=== PATIENT | female | born 1990 | race Caucasian/White ===

== ENCOUNTER 2018-01-30 11:59 | Day surgery (SDC) | payer OTHER ==
[2018-01-27 11:06] VITALS: BMI 41.0
--- NOTE | 2018-01-30 07:45 | P.GSHP ---
History of Present Illness H&P Date: 01/30/18 CHIEF COMPLAINT: GI bleed HISTORY OF PRESENT ILLNESS: The patient is a 27-year-old female who presents with GI bleed. Upper and lower endoscopy were offered for further evaluation and management. PAST MEDICAL HISTORY: Please see list. PAST SURGICAL HISTORY: Please see list. MEDICATIONS: Please see list. ALLERGIES: Please see list. SOCIAL HISTORY: No illicit drug use FAMILY HISTORY: No reports of Crohn disease or ulcerative colitis. REVIEW OF ORGAN SYSTEMS: CONSTITUTIONAL: No reports of fevers or chills. GI: Denies any blood in stools or constipation. PHYSICAL EXAM: VITAL SIGNS: Stable GENERAL: Well-developed pleasant in no acute distress. HEENT: No scleral icterus. Extraocular movements grossly intact. Moist buccal mucosa. NECK: Supple without lymphadenopathy. CHEST: Unlabored respirations. Equal bilateral excursions. CARDIOVASCULAR: Regular rate and rhythm. Distal 2+ pulses. ABDOMEN: Soft, nondistended. MUSCULOSKELETAL: No clubbing, cyanosis, or edema. ASSESSMENT: 1. GI bleed PLAN: 1. Recommend proceeding with an upper and lower endoscopy Past Medical History Past Medical History: Asthma, Eye Disorder, GERD/Reflux, Hearing Disorder / Deafness, Rheumatoid Arthritis (RA) Additional Past Medical History / Comment(s): Hx fx lt ankle. Partially deaf in bilaterally, astigmatism. Current daily diarrhea X3-4 weeks, up to 12 episodes in one day. History of Any Multi-Drug Resistant Organisms: None Reported Past Surgical History: Section Additional Past Surgical History / Comment(s): Left ankle surgery, Section X2, mole removed. Past Anesthesia/Blood Transfusion Reactions: No Reported Reaction Past Psychological History: Anxiety, Depression Additional Psychological History / Comment(s): Depression resolved. Smoking Status: Current every day smoker Past Alcohol Use History: Occasional Additional Past Alcohol Use History / Comment(s): Has been smoking since 16 yrs old, 1 PPD. Past Drug Use History: None Reported - Past Family History Mother Family Medical History: No Reported History Medications and Allergies Home Medications Medication Instructions Recorded Confirmed Type Albuterol Inhaler [Ventolin Hfa 1 - 2 puff INHALATION RT-Q6H PRN 01/27/18 History Inhaler] Control Pill 1 tab PO HS 01/27/18 01/27/18 History Buspirone 1 tab PO DAILY PRN 01/27/18 01/27/18 History Flexeril 1 tab PO DAILY PRN 01/27/18 01/27/18 History Allergies Allergy/AdvReac Type Severity Reaction Status Date / Time latex Allergy Rash/Hives Verified 01/27/18 11:15 tetanus immune globulin Allergy Anaphylaxis Verified 01/27/18 10:54 venom-honey bee Allergy Anaphylaxis Verified 01/27/18 10:54 [bee venom (honey bee)]
[~2018-01-30 11:59] MED LIST: LACTATED RINGERS 1,000 ML IV SCH; LIDOCAINE 1% 20 ML VIAL (10MG/ML) FOR IV START INTRADERMA PRN
[2018-01-30 12:30] VITALS: RESP 16; TEMP 97
[2018-01-30] MEDS ORDERED: GLYCOPYRROLATE 0.2 MG/ML 2 ML VIAL ONE (13:45)
[2018-01-30] MEDS ORDERED: KETAMINE 10 MG/ML 20 ML VIAL ONE (13:45)
[2018-01-30] MEDS ORDERED: LIDOCAINE 1% INJ 10MG/ML (20 ML MDV) ONE (13:45)
[2018-01-30] MEDS ORDERED: PROPOFOL 10 MG/ML 20 ML VIAL IV ONE (13:45)
--- NOTE | 2018-01-30 14:02 | P.PCN ---
Date of Procedure: 01/30/18 Description of Procedure: PREOPERATIVE DIAGNOSIS: Gastrointestinal bleed History of gastric ulcers POSTOPERATIVE DIAGNOSIS: Gastrointestinal bleed History of gastric ulcers Morbid obesity due to excess calories, BMI 41.1 Superficial gastric ulcer antrum without bleeding Gastroesophageal reflux disease. Diaphragmatic hiatal hernia without obstruction. OPERATION: Esophagogastroduodenoscopy with biopsies along antrum. SURGEON: Charlee Valerio MD ANESTHESIA: MAC. INDICATIONS: The patient is a 27-year-old female who presents with a history of reflux disease. Benefits and risks of the procedure were described. Informed consent was obtained. DESCRIPTION: The patient was brought into the endoscopy suite and laid in the left lateral decubitus position. An Olympus gastroscope was passed along the posterior oropharynx down to the distal esophagus where the squamocolumnar junction was encountered at 35 cm from the incisors. The stomach was entered and no bile reflux was found. Additional findings are listed below. Biopsies with cold forceps were obtained of the antrum. The first through third portion of the duodenum was examined and unremarkable. Retroflexion of the scope confirmed Hill grade 4 lower esophageal valve. The squamocolumnar junction demonstrated LA grade B erosive esophagitis. The stomach was desufflated. The patient tolerated the procedure well. FINDINGS: Squamocolumnar junction 35 cm from the incisors. Diaphragmatic hiatus at 37 cm. Hiatal hernia 2 cm, sliding type Hill grade 4 lower esophageal valve. LA grade B erosive esophagitis. No active duodenitis. Gastric ulcers without active bleeding, superficial RECOMMENDATIONS: Further recommendations pending results of pathology report. Upper endoscopy as needed.
--- NOTE | 2018-01-30 14:13 | P.PCN ---
Date of Procedure: 01/30/18 Description of Procedure: PREOPERATIVE DIAGNOSIS: Gastrointestinal bleeding Family history colon cancer POSTOPERATIVE DIAGNOSIS: Gastrointestinal bleeding Family history colon cancer Colon polyp, rectum OPERATION: Colonoscopy to the ileocecal valve and appendiceal orifice. Colonoscopy with hot snare polypectomies SURGEON: Charlee Valerio MD. ANESTHESIA: MAC. INDICATIONS: The patient is a 27-year-old female who presents with gastrointestinal bleeding. Benefits and risks were described and informed consent was obtained. DESCRIPTION OF PROCEDURE: The patient had undergone Gatorade, MiraLAX and Dulcolax prep. She had been brought into the operating room and laid in the left lateral decubitus position. After adequate intravenous sedation, the rectum was examined with 2% lidocaine jelly. No external hemorrhoids were encountered. The rectal tone was within normal limits. No lesions were palpated in the rectal vault. An Olympus colonoscope was advanced until the ileocecal valve and appendiceal orifice were clearly viewed. The prep was fair with visualization of the mucosal folds. The scope was removed with visualization of each mucosal fold. No scattered diverticulosis was encountered. Colonic polyps were snare polypectomy. No evidence of focal colitis was found. No grade 1 internal hemorrhoids without active bleeding or inflammation were found. The colon was desufflated. The patient had tolerated the procedure well. Withdrawal time was over 6 minutes. FINDINGS: No internal hemorrhoids No external hemorrhoids, grade 2. No arteriovenous malformations. Removal of 1 polyp: - Snare polypectomy 10 cm from the anal verge, 5 mm tubulovillous adenoma polyp. No sigmoid diverticulosis No focal colitis. RECOMMENDATIONS: With her family history and polyps, repeat colonoscopy 5 years, 2022
[2018-01-30 14:37] VITALS: BP 105/76; PULSE 79
--- NOTE | 2018-02-03 15:35 | CDI ---
Outpatient Documentation Clarification Form Date: 02/03/18 CDS/Hotel Controller Name: Mesha Sauceda Phone: If any questions, call Crystal Khan [employer] Control Equipment Repairer at [phone] Patient Name: Hattie Paula Admit Date: 01/30/18 Discharge Date: 01/30/18 ATTENTION: The [facility] Coding Staff appreciate your assistance in clarifying documentation. Please respond to the clarification below the line at the bottom and electronically sign. The [facility] Coding staff will review the response and follow-up if needed. Please note: Queries are made part of the Legal Health Record. If you have any questions, please contact the X [employer] Control Equipment Repairer. Dear Dr. Valerio, What is the source of the GI bleed? Is it due to one of the conditions found, such as gastritis or ulcer, or unrelated? Multiple coding resources, that we are required to follow, state that the physician should identify a source and the membership solicitor may not assume. ICD-9-CM [facility], Second 2006, Page 13: Question: In the 2004 issue of [facility], it was advised that "the combination codes describing hemorrhage should not be assigned unless the physician identifies a causal relationship." This information superseded previous advice provided in 1991. If, however, a patient presents with GI bleeding where only one possible source is found, can the membership solicitor assume a causal relationship between the GI bleeding and the single finding (ulcer, gastritis, diverticulitis, etc.) or must the physician explicitly state that the GI bleeding is due to the single finding? Answer: The membership solicitor should not assume a causal relationship between gastrointestinal bleeding and a single finding such as a gastric ulcer, gastritis, diverticulitis , etc. The physician must identify the source of the bleeding and link the clinical findings from the colonoscopy or upper endoscopy, since these findings may be unrelated to the bleeding. ICD-9-CM, 2004, Page: 17-18: Question: A patient presents with GI bleeding and undergoes both an EGD with biopsy and colonoscopy. Results reveal multiple findings including gastritis, duodenitis, esophagitis, diverticulosis (of colon), and colon polyp. The physician does not link the GI bleeding with these conditions nor does the physician state that the GI bleeding is not due to these conditions. What is the correct code assignment for these conditions? Answer: Query the physician to determine whether the GI bleeding was caused by any of the endoscopic findings (e.g., gastritis, duodentitis, esophagitis, diverticulosis, and/or polyp). Assign code 578.9, Hemorrhage of gastrointestinal tract, unspecified, as the principal diagnosis, if the physician does not establish a causal relationship between the gastrointestinal bleeding and the multiple findings. Codes 535.50, Unspecified gastritis and gastroduodenitis, without hemorrhage, 535.60, Duodenitis, without hemorrhage, 530.10, Esophagitis, unspecified, 562.10, Diverticulosis of colon (without mention of hemorrhage), and 211.3, Benign neoplasm of other parts of digestive system, Colon, should be assigned as additional diagnoses. The combination codes describing hemorrhage should not be assigned unless the physician identifies a causal relationship. If the documentation provides more specific information and the bleeding is linked to a specific condition, assign the appropriate combination code with bleeding. Assign code 45.16, Esophagogastroduodenoscopy [EGD] with closed biopsy, and code 45.23, Colonoscopy , for the procedures performed. This current information supersedes advice previously published in [facility], Second Quarter 1991, pages 8-9. Thank you for your kind consideration. NO ACTIVE BLEEDING WAS FOUND ON EITHER UPPER SCOPE OR LOWER SCOPE. THEREFORE FINDINGS ARE NOT ABLE TO ESTABLISH A SOURCE. NO CAUSAL RELATIONSHIP CAN BE ASSUMED....578.9 02/11/18 @ 11:06 [facility]
== END 2018-01-30 14:46 | disposition home or self-care (01) ==
LOC: ORWHC2ENDO 11:59
PROVIDERS: ATTEND Surgery Plastic and Reconstructive Surgery
DX: K29.51 Unspecified chronic gastritis with bleeding (principal); K62.1 Rectal polyp; K21.0 Gastro-esophageal reflux disease with esophagitis; K25.9 Gastric ulcer, unspecified as acute or chronic, without hemorrhage or perforation; E66.01 Morbid (severe) obesity due to excess calories; Z68.41 Body mass index [BMI] 40.0-44.9, adult; K44.9 Diaphragmatic hernia without obstruction or gangrene; Z80.0 Family history of malignant neoplasm of digestive organs; Z87.11 Personal history of peptic ulcer disease; J45.909 Unspecified asthma, uncomplicated; M06.9 Rheumatoid arthritis, unspecified; H91.93 Unspecified hearing loss, bilateral; H52.209 Unspecified astigmatism, unspecified eye; F41.9 Anxiety disorder, unspecified; F32.9 Major depressive disorder, single episode, unspecified; F17.210 Nicotine dependence, cigarettes, uncomplicated; Z79.3 Long term (current) use of hormonal contraceptives; Z88.7 Allergy status to serum and vaccine; Z91.030 Bee allergy status; Z91.040 Latex allergy status
CPT/HCPCS: 81025; 88305; 45385; 43239; J2001; J2704

== ENCOUNTER 2018-03-30 12:13 | Day surgery (SDC) | payer OTHER ==
[2018-03-24 11:26] VITALS: BMI 41.0
--- NOTE | 2018-03-29 17:23 | P.GSHP ---
History of Present Illness H&P Date: 03/30/18 CHIEF COMPLAINT: Cholecystitis HISTORY OF PRESENT ILLNESS: The patient is a 27-year-old female who presents with history of epigastric including right upper quadrant abdominal pain. She underwent diagnostic studies for her gallbladder. Separately her clinical picture was consistent with cholecystitis. Now she presents for surgical intervention. PAST MEDICAL HISTORY: Please see list PAST SURGICAL HISTORY: Please see list MEDICATIONS: Please see list ALLERGIES: Denies. SOCIAL HISTORY: No illicit drug use or recent tobacco use FAMILY HISTORY: Pertinent for gallbladder disease REVIEW OF ORGAN SYSTEMS: CONSTITUTIONAL: No reports of fevers or chills. HEENT: Denies any troubles with the vision or hearing. ENDOCRINE: No reports of hypothyroidism. No diabetes. RESPIRATORY: No recent pneumonias. CARDIOVASCULAR: Denies chest pain or palpitations GI: No blood in stools or constipation. MUSCULOSKELETAL: Has occasional joint pain including back pain. NEURO: No seizure disorders or headaches. No recent stroke. PSYCH: No depression or suicidal ideation. GENITOURINARY: No active blood in urine. No urinary hesitancy. HEMATOLOGIC: No personal or family history of DVTs or pulmonary emboli. SKIN: No skin cancer. PHYSICAL EXAM: VITAL SIGNS: Afebrile vital signs stable GENERAL: Well-developed pleasant in no acute distress. HEENT: No scleral icterus. Extraocular movements grossly intact. Moist buccal mucosa. NECK: Supple without lymphadenopathy. CHEST: Unlabored respirations. Equal bilateral excursions. CARDIOVASCULAR: Regular rate regular rhythm rhythm. Distal 2+ pulses. ABDOMEN: Soft, nondistended. Tender along the epigastrium and right upper quadrant. MUSCULOSKELETAL: No clubbing, cyanosis, or edema. NEURO: Cranial nerves II to XII within normal limits. No focal or lateralizing signs. PSYCH: Alert and oriented to person, place and time. SKIN: Well-perfused good skin turgor. ASSESSMENT: 1. Epigastric and right upper quadrant abdominal pain 2. Chronic cholecystitis 3. Symptomatic gallstones. PLAN: 1. Will need a robotic cholecystectomy possible open. Benefits and risks were described. 2. Heparin for DVT prophylaxis 5000 units. 3. Antibiotic prophylaxis. Past Medical History Past Medical History: Asthma, Eye Disorder, GERD/Reflux, Hearing Disorder / Deafness, Rheumatoid Arthritis (RA) Additional Past Medical History / Comment(s): Partially deaf in bilaterally, astigmatism. Current daily diarrhea History of Any Multi-Drug Resistant Organisms: None Reported Past Surgical History: Section Additional Past Surgical History / Comment(s): Left ankle surgery, Section X2, mole removed; tumor from wrist Past Anesthesia/Blood Transfusion Reactions: No Reported Reaction Smoking Status: Current every day smoker - Past Family History Mother Family Medical History: No Reported History Medications and Allergies Home Medications Medication Instructions Recorded Confirmed Type Albuterol Inhaler [Ventolin Hfa 1 - 2 puff INHALATION RT-Q6H PRN 01/27/18 History Inhaler] Allese 1 tab PO DAILY 03/24/18 03/24/18 History Cyclobenzaprine [Flexeril] 10 mg PO TID PRN 03/24/18 03/24/18 History busPIRone HCL 10 mg PO BID PRN 03/24/18 03/24/18 History Allergies Allergy/AdvReac Type Severity Reaction Status Date / Time latex Allergy Rash/Hives Verified 03/24/18 11:17 tetanus immune globulin Allergy Anaphylaxis Verified 03/24/18 11:17 venom-honey bee Allergy Anaphylaxis Verified 03/24/18 11:17 [bee venom (honey bee)]
[~2018-03-30 12:13] MED LIST changes: +DEXAMETHASONE SOD PHOSPHATE 10 MG/ML 1 ML VIAL IV ONE; +HEPARIN SODIUM,PORCINE 5,000 UNIT/ML 1 ML VIAL SQ ONE; +HYDROmorphone 0.5 MG/0.5 ML SYRINGE IVP PRN; +INDOCYANINE GREEN 25 MG VIAL IV STA; -LIDOCAINE 1% 20 ML VIAL (10MG/ML) FOR IV START INTRADERMA PRN; +MIDAZOLAM 2 MG/2 ML VIAL IV PRN; +ONDANSETRON 4 MG/2 ML VIAL IVP ONE
[2018-03-30 12:54] VITALS: RESP 16
[2018-03-30 12:55] LABS: Basophils # (A) 0.1 k/uL (0-0.2); Basophils % (A) 1 %; Eosinophils # (A) 0.3 k/uL (0-0.7); Eosinophils % (A) 4 %; HCT 43.6 % (34.0-46.0); HGB 15.3 gm/dL (11.4-16.0); Lymphocytes # (A) 1.9 k/uL (1.0-4.8); Lymphocytes % (A) 27 %; MCH 29.3 pg (25.0-35.0); MCHC 35.1 g/dL (31.0-37.0); MCV 83.4 fL (80.0-100.0); Mean Platelet Volume 7.3; Monocytes # (A) 0.4 k/uL (0-1.0); Monocytes % (A) 6 %; Neutrophils # (A) 4.3 k/uL (1.3-7.7); Neutrophils % (A) 61 %; Platelet Count 305 k/uL (150-450); RBC 5.22 m/uL (3.80-5.40); RDW 12.6 % (11.5-15.5)
[2018-03-30] MEDS ORDERED: LIDOCAINE 1% 20 ML VIAL (10MG/ML) FOR IV START INTRADERMA ONE (12:56)
[2018-03-30] MEDS ORDERED: SCOPOLAMINE 1.5MG/72HR PATCH TRANSDERM ONE (12:58)
[2018-03-30] MEDS ORDERED: MIDAZOLAM 2 MG/2 ML VIAL ONE (13:22)
[2018-03-30] MEDS ORDERED: MORPHINE SULFATE 10 MG/ML SYRINGE ONE (13:22)
[2018-03-30] MEDS ORDERED: SUCCINYLCHOLINE CHLORIDE 100 MG/5 ML SYR IV ONE (13:22)
[2018-03-30] MEDS ORDERED: HYDROmorphone (PF) 1 MG/ML ONE (13:22)
[2018-03-30] MEDS ORDERED: KETOROLAC 30 MG/ML 1 ML VIAL ONE (13:22)
[2018-03-30] MEDS ORDERED: LIDOCAINE 1% INJ 10MG/ML (20 ML MDV) ONE (13:22)
[2018-03-30] MEDS ORDERED: NEOSTIGMINE 1 MG/ML 10 ML VIAL ONE (13:22)
[2018-03-30] MEDS ORDERED: fentaNYL (PF) 50 MCG/ML 2 ML AMP ONE (13:22)
[2018-03-30] MEDS ORDERED: GLYCOPYRROLATE 0.2 MG/ML 2 ML VIAL ONE (13:22)
[2018-03-30] MEDS ORDERED: ROCURONIUM BROMIDE 10 MG/ML 10 ML VIAL IV ONE (13:22)
[2018-03-30] MEDS ORDERED: PROPOFOL 10 MG/ML 20 ML VIAL IV ONE (13:22)
[2018-03-30 13:23] LABS: ALT 55 U/L (9-52); AST 35 U/L (14-36); Albumin 4.2 g/dL (3.5-5.0); Alkaline Phosphatase 100 U/L (38-126); Anion Gap 10 mmol/L; Blood Urea Nitrogen 6 mg/dL (7-17); Calcium 9.2 mg/dL (8.4-10.2); Carbon Dioxide 25 mmol/L (22-30); Chloride 105 mmol/L (98-107); Glucose 92 mg/dL (74-99); Potassium 4.2 mmol/L (3.5-5.1); Sodium 140 mmol/L (137-145); Total Bilirubin 0.4 mg/dL (0.2-1.3); Total Protein 7.1 g/dL (6.3-8.2)
[2018-03-30] MEDS ORDERED: BUPIVACAIN-EPI 0.25%-1:200,000 30 ML VIAL SQ ONE ×2 (13:35→13:44)
--- NOTE | 2018-03-30 14:26 | P.OP ---
Date of Procedure: 03/30/18 Description of Procedure: SURGEON: ALBERT JHAVERI MD PREOPERATIVE DIAGNOSES: 1. Symptomatic gallstones 2. Chronic cholecystitis 3. Asthma 4. Depression 5. Tobacco abuse POSTOPERATIVE DIAGNOSES: 1. Symptomatic gallstones 2. Chronic cholecystitis 3. Asthma 4. Depression 5. Tobacco abuse 6. Hepatomegaly with fatty liver disease OPERATION: Robotic-assisted da Hans Xi laparoscopic cholecystectomy, multiport with FIREFLY ESTIMATED BLOOD LOSS: 5 mL. SPECIMENS REMOVED: Gallbladder. COMPLICATIONS: None. OPERATIVE FINDINGS: 1. Chronic cholecystitis INDICATIONS: The patient is a 27-year-old female who presents with cholelcystitis. Surgical intervention with a laparoscopic cholecystectomy was described at length including injury to the biliary tree, bleeding, infection, need for further surgery. Informed consent was obtained. Robotic assisted laparoscopic approach was described. Benefits and risks of the procedure including but not limited to bleeding, infection, injury to the biliary tree was described. Informed consent was obtained. DESCRIPTION OF PROCEDURE: Patient was brought to the operating room, placed in supine position. After general induction, the abdomen had been prepped and draped in standard sterile fashion. The robotic da Hans XI system was primed. After a timeout protocol was performed, the patient had been prepped and draped in standard sterile fashion. The patient was injected with indocyanine green. A 5 mm 0 degrees laparoscopic trocar entry was performed along the left upper quadrant. The abdomen insufflated to 15 mmHg pressure which she tolerated well. Diagnostic laparoscopy demonstrated no injury to bowel viscera or mesentery. The liver surface was unremarkable. Next, two 8 mm robotic ports were placed along the right upper abdomen. The camera 8-mm port was maintained along the epigastrium. Another 8 mm port was placed along the left upper abdominal wall after exchanging the 5 mm port. Please note that the ports were placed at least 10 to 15 cm away from the target anatomy of the gallbladder. The robot was docked along the left lateral abdomen. The patient was repositioned in reverse Trendelenburg position. Using a grasper for arm 3, a grasper for arm 4, including hook cautery for arm 1 , the robotic system was docked and primed as described. Instruments were interchanged by the surveyor instrument assistant including hook cautery, Bovie cautery and clip appliers. I had sat at the console. Adhesions were identified along the infundibulum of the gallbladder and addressed using hook cautery. The gallbladder fundus was retracted over the dome of the liver. Initial attention was brought to the infundibulum which was gently retracted in the inferior lateral approach. Using a grasper, the cystic duct including the cystic artery was carefully skeletonized. FIREFLY was used to identify the cystic artery and cystic structures. Large PLASTIC clips were used throughout the entire case. Using a clip print binding and finishing worker 2 clips were placed proximally, and 1 clip was placed distally along the cystic duct and then cauterized with the cautery. Again care was taken to avoid any injury to the biliary tree as the common bile duct was clearly visualized during this portion of dissection. Next, the cystic artery was similarly clipped and cauterized. Electro-Bovie cautery was used to remove the gallbladder from the hepatic fossa. Hemostasis was checked and found to be adequate. The robot was undocked. I re-scrubbed into the case. Using a 10 mm Endo Catch bag via the left upper quadrant incision, the specimen was removed from the abdominal cavity. All pneumoperitoneum instruments were evacuated from the abdominal cavity. The incisions were reapproximated using 4-0 Monocryl in an interrupted subcuticular fashion. Fascial defects were less than 8 mm in size. Please note along the trocar sites, local anesthetic was placed as a field block prior to insertion of all instruments. Liquid glue was applied to the skin. At the end of the procedure needle, sponge, and instrument count had been verified correct by the surgical clinical reviewer. The patient was transferred to postanesthesia care unit in stable condition. Intraoperative films were shared with the patient's family who were very pleased with the level of care. Console time 18 minutes Plan - Discharge Summary New Discharge Prescriptions: No Action Albuterol Inhaler [Ventolin Hfa Inhaler] 1 - 2 puff INHALATION RT-Q6H PRN PRN Reason: Shortness Of Breath Allese 1 tab PO DAILY busPIRone HCL 10 mg PO BID PRN PRN Reason: depression Cyclobenzaprine [Flexeril] 10 mg PO TID PRN PRN Reason: Muscle Spasm Discharge Medication List Albuterol Inhaler [Ventolin Hfa Inhaler] 1 - 2 puff INHALATION RT-Q6H PRN [History] Allese 1 tab PO DAILY 03/24/18 [History] Cyclobenzaprine [Flexeril] 10 mg PO TID PRN 03/24/18 [History] busPIRone HCL 10 mg PO BID PRN 03/24/18 [History] Patient Instructions/Handouts: *Surgery [facility] - Scopalamine Patch Instructions
[2018-03-30] MEDS ORDERED: LACTATED RINGERS 1,000 ML IV ONE (14:30)
[2018-03-30 14:42] VITALS: TEMP 97
[2018-03-30] MEDS ORDERED: diphenhydrAMINE 50 MG/ML 1 ML VIAL IVP ONE (15:09)
[2018-03-30] MEDS ORDERED: HYDROcodone/APAP 5-325MG 1 EACH TAB PO ONE (16:09)
[2018-03-30 16:43] VITALS: BP 111/48; PULSE 64
== END 2018-03-30 16:56 | disposition home or self-care (01) ==
LOC: OR 12:13
PROVIDERS: ATTEND Surgery Plastic and Reconstructive Surgery
DX: K80.10 Calculus of gallbladder with chronic cholecystitis without obstruction (principal); K21.9 Gastro-esophageal reflux disease without esophagitis; H91.93 Unspecified hearing loss, bilateral; F17.210 Nicotine dependence, cigarettes, uncomplicated; J45.909 Unspecified asthma, uncomplicated; F41.9 Anxiety disorder, unspecified; F32.9 Major depressive disorder, single episode, unspecified; K76.0 Fatty (change of) liver, not elsewhere classified; E66.01 Morbid (severe) obesity due to excess calories; Z68.41 Body mass index [BMI] 40.0-44.9, adult; Z79.899 Other long term (current) drug therapy; Z88.7 Allergy status to serum and vaccine; Z91.030 Bee allergy status; Z91.040 Latex allergy status
CPT/HCPCS: 47562; S2900; 80053; 81025; 85025; 88304